=== PATIENT | male | born 1950 | race African-American/Black ===

== ENCOUNTER 2016-11-19 15:30 | Observation (INO) | payer MEDICARE ==
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
[2016-11-19] MEDS ORDERED: KCL 40MEQ/NS 1,000 ML IVS PRN (17:06)
[2016-11-19] MEDS ORDERED: DEXTROSE 50% 25 GM/50 ML SYG IV ONE (17:09)
[2016-11-19] MEDS ORDERED: POTASSIUM CHLORIDE 20 MEQ TAB PO ONE (17:10)
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
[2016-11-19] MEDS ORDERED: ACETAMINOPHEN 325 MG TAB PO PRN (21:03)
[2016-11-19] MEDS ORDERED: DEXTROSE 50% 25 GM/50 ML SYG IV PRN (21:03)
[2016-11-19] MEDS ORDERED: SODIUM CHLORIDE 0.9% (FLUSH) 10 ML SYG IV PRN (21:03)
[2016-11-19] MEDS ORDERED: GLUCAGON INJ 1 MG VIAL SUBCU PRN (21:03)
[2016-11-19] MEDS ORDERED: IV SET AND CAP CHANGE INJ INJ SCH (21:30)
[2016-11-19] MEDS ORDERED: cloNIDine HCL 0.1 MG TAB PO ONE (22:17)
[2016-11-19] MEDS: INDOMETHACIN CAP 25 MG CAP PO SCH (22:41)
[2016-11-19] MEDS: KCL 20MEQ/0.45% NS 1,000 ML IVS PRN (22:42)
--- NOTE | 2016-11-19 22:44 | PCM.CORE ---
Physician DVT/VTE - Nurse DVT Assessment & Total Each Risk Factor Represents 2 Points: Age 60-74 Each Risk Factor is 1 Point: Obesity (BMI >25) DVT Assessment Score: 3 - 3-4 High Risk Treatments: Early Ambulation *, Sequential Compression Device Pharmacological: Enoxaparin 40 mg SQ Daily
[2016-11-20] MEDS: INSULIN LISPRO 100 UNITS/ML PEN SUBCU SCH ×4 (07:37→21:05)
[2016-11-20] MEDS ORDERED: INDOMETHACIN CAP 25 MG CAP ONE (08:03)
[2016-11-20] MEDS: INDOMETHACIN CAP 25 MG CAP PO SCH ×3 (08:04→16:52)
[2016-11-20] MEDS ORDERED: ENOXAPARIN SODIUM 40 MG/0.4 ML SYG SUBCU ONE (08:44)
[2016-11-20] MEDS: ENOXAPARIN SODIUM 40 MG/0.4 ML SYG SUBCU SCH (08:45)
--- NOTE | 2016-11-20 10:19 | RAD ---
NAME: JOE SZYMANSKIPROCEDURE: XR HAND 1-2 VIEWSORDER DATE: 11/19/2016 10:13 PM CSTACCESSION NUMBER: [id number] CLINICAL HISTORY: SWOLLEN lEFT HAND; hX OF GOUT INDICATION: Same as above COMPARISON: None . TECHNIQUE: 2.0 Views of the left hand were done. FINDINGS: There is no evidence of acute fractures or dislocation involving the bones of the left wrist and hand. Note is made of tiny focal erosive changes at the bases of the proximal phalanges of the second and the fourth digit, suggestive of underlying mild degenerative change. There is no visualization of chondrocalcinosis in the region of the wrist joint. The wrist joint arches are well-maintained. There is no evidence of ulnar variance. The joint spaces of the hand and the wrist are relatively well-maintained. The bone mineralization is normal for patient's age and sex. The soft tissues are radiographically unremarkable. There is no visualization of any radiopaque foreign bodies in the evaluated soft tissues. IMPRESSION: Note is made of tiny focal erosive changes at the bases of the proximal phalanges of the second and the fourth digit, suggestive of underlying mild degenerative change. Place of interpretation: Teleradiology. Electronically signed by: Eder Fitzpatrick MD 11/20/2016 10:18 AM ORE SMELTER
[2016-11-20] MEDS: KCL 20MEQ/0.45% NS 1,000 ML IVS PRN (11:09)
[2016-11-20] MEDS ORDERED: cloNIDine HCL 0.1 MG TAB PO ONE (12:59)
[2016-11-20] MEDS: NEBIVOLOL 2.5 MG TAB PO SCH (13:23)
[2016-11-20] MEDS: amLODIPine BESYLATE 5 MG TAB PO SCH (13:23)
[2016-11-20] MEDS: POTASSIUM CHLORIDE 20 MEQ TAB PO SCH (13:23)
[2016-11-20] MEDS: SODIUM CHLORIDE 0.9% (FLUSH) 10 ML SYG IV SCH ×2 (13:24→20:42)
[2016-11-20] MEDS: PANTOPRAZOLE SODIUM IV 40 MG VIAL IV SCH (13:27)
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
[2016-11-21] MEDS: PANTOPRAZOLE SODIUM IV 40 MG VIAL IV SCH (06:32)
[2016-11-21] MEDS: INSULIN LISPRO 100 UNITS/ML PEN SUBCU SCH ×2 (07:03→11:40)
[2016-11-21] MEDS: POTASSIUM CHLORIDE 20 MEQ TAB PO SCH (07:10)
[2016-11-21] MEDS: INDOMETHACIN CAP 25 MG CAP PO SCH ×2 (07:10→11:41)
[2016-11-21] MEDS: NEBIVOLOL 2.5 MG TAB PO SCH (08:31)
[2016-11-21] MEDS: ENOXAPARIN SODIUM 40 MG/0.4 ML SYG SUBCU SCH (08:31)
[2016-11-21] MEDS: amLODIPine BESYLATE 5 MG TAB PO SCH (08:32)
[2016-11-21] MEDS: SODIUM CHLORIDE 0.9% (FLUSH) 10 ML SYG IV SCH (08:33)
[2016-11-21] MEDS ORDERED: LISINOPRIL 10 MG TAB PO SCH (10:00)
[2016-11-21 10:28] VITALS: BP 157/86; TEMP 98.5; O2SAT 99
[2016-11-21] MEDS ORDERED: metFORMIN HCL 500 MG TAB PO SCH (17:00)
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
--- NOTE | 2016-12-19 23:46 | RAD ---
NAME: JOE SZYMANSKIPROCEDURE: XR HAND 1-2 VIEWSORDER DATE: 11/19/2016 10:13 PM CSTACCESSION NUMBER: [id number] CLINICAL HISTORY: SWOLLEN lEFT HAND; hX OF GOUT INDICATION: Same as above COMPARISON: None . TECHNIQUE: 2.0 Views of the left hand were done. FINDINGS: There is no evidence of acute fractures or dislocation involving the bones of the left wrist and hand. Note is made of tiny focal erosive changes at the bases of the proximal phalanges of the second and the fourth digit, suggestive of underlying mild degenerative change. There is no visualization of chondrocalcinosis in the region of the wrist joint. The wrist joint arches are well-maintained. There is no evidence of ulnar variance. The joint spaces of the hand and the wrist are relatively well-maintained. The bone mineralization is normal for patient's age and sex. The soft tissues are radiographically unremarkable. There is no visualization of any radiopaque foreign bodies in the evaluated soft tissues. IMPRESSION: Note is made of tiny focal erosive changes at the bases of the proximal phalanges of the second and the fourth digit, suggestive of underlying mild degenerative change. Place of interpretation: Teleradiology. Electronically signed by: Eder Fitzpatrick MD 11/20/2016 10:18 AM WALL COVERING CONTRACTOR
--- NOTE | 2016-12-20 04:31 | RAD ---
NAME: JOE SZYMANSKIPROCEDURE: XR HAND 1-2 VIEWSORDER DATE: 11/19/2016 10:13 PM CSTACCESSION NUMBER: [id number] CLINICAL HISTORY: SWOLLEN lEFT HAND; hX OF GOUT INDICATION: Same as above COMPARISON: None . TECHNIQUE: 2.0 Views of the left hand were done. FINDINGS: There is no evidence of acute fractures or dislocation involving the bones of the left wrist and hand. Note is made of tiny focal erosive changes at the bases of the proximal phalanges of the second and the fourth digit, suggestive of underlying mild degenerative change. There is no visualization of chondrocalcinosis in the region of the wrist joint. The wrist joint arches are well-maintained. There is no evidence of ulnar variance. The joint spaces of the hand and the wrist are relatively well-maintained. The bone mineralization is normal for patient's age and sex. The soft tissues are radiographically unremarkable. There is no visualization of any radiopaque foreign bodies in the evaluated soft tissues. IMPRESSION: Note is made of tiny focal erosive changes at the bases of the proximal phalanges of the second and the fourth digit, suggestive of underlying mild degenerative change. Place of interpretation: Teleradiology. Electronically signed by: Eder Fitzpatrick MD 11/20/2016 10:18 AM DENTAL CERAMIST ASSISTANT
--- NOTE | 2016-12-20 05:40 | RAD ---
NAME: JOE SZYMANSKIPROCEDURE: XR HAND 1-2 VIEWSORDER DATE: 11/19/2016 10:13 PM CSTACCESSION NUMBER: [id number] CLINICAL HISTORY: SWOLLEN lEFT HAND; hX OF GOUT INDICATION: Same as above COMPARISON: None . TECHNIQUE: 2.0 Views of the left hand were done. FINDINGS: There is no evidence of acute fractures or dislocation involving the bones of the left wrist and hand. Note is made of tiny focal erosive changes at the bases of the proximal phalanges of the second and the fourth digit, suggestive of underlying mild degenerative change. There is no visualization of chondrocalcinosis in the region of the wrist joint. The wrist joint arches are well-maintained. There is no evidence of ulnar variance. The joint spaces of the hand and the wrist are relatively well-maintained. The bone mineralization is normal for patient's age and sex. The soft tissues are radiographically unremarkable. There is no visualization of any radiopaque foreign bodies in the evaluated soft tissues. IMPRESSION: Note is made of tiny focal erosive changes at the bases of the proximal phalanges of the second and the fourth digit, suggestive of underlying mild degenerative change. Place of interpretation: Teleradiology. Electronically signed by: Eder Fitzpatrick MD 11/20/2016 10:18 AM BLOCK CUTTER
== END 2016-11-21 11:40 | disposition home or self-care (01) ==
LOC: ER 15:30 → INTOOBSV 20:39 → MS 20:39
PROVIDERS: ADMIT Nurse Practitioner Family; ATTEND Nurse Practitioner Family
DX: E11.649 Type 2 diabetes mellitus with hypoglycemia without coma (principal); E11.65 Type 2 diabetes mellitus with hyperglycemia; E87.6 Hypokalemia; M10.9 Gout, unspecified; T46.5X6A Underdosing of other antihypertensive drugs, initial encounter; M19.90 Unspecified osteoarthritis, unspecified site; E11.22 Type 2 diabetes mellitus with diabetic chronic kidney disease; I12.9 Hypertensive chronic kidney disease with stage 1 through stage 4 chronic kidney disease, or unspecified chronic kidney disease; N18.9 Chronic kidney disease, unspecified; D50.9 Iron deficiency anemia, unspecified; E78.2 Mixed hyperlipidemia; E66.9 Obesity, unspecified; I45.10 Unspecified right bundle-branch block; Z79.4 Long term (current) use of insulin; Z79.899 Other long term (current) drug therapy; Z96.651 Presence of right artificial knee joint; Z91.120 Patient's intentional underdosing of medication regimen due to financial hardship; Y92.009 Unspecified place in unspecified non-institutional (private) residence as the place of occurrence of the external cause; Z82.3 Family history of stroke; Z80.0 Family history of malignant neoplasm of digestive organs
CPT/HCPCS: 36415 ×5; 36416; 70450; 73120; 77067; 80048 ×2; 80053 ×2; 81001; 82947; 82948 ×10; 83036; 83735; 85025 ×3; 93005; 94760 ×3; G0378; G0479; J1650 ×2; J3480 ×3; J7799

== ENCOUNTER → 2017-02-01 | Outpatient (CLI) | payer MEDICARE | END | disposition home or self-care (01) | LOC: YCFC.O 09:33 | PROVIDERS: ATTEND Nurse Practitioner Family | DX: M10.09 Idiopathic gout, multiple sites (principal); E11.22 Type 2 diabetes mellitus with diabetic chronic kidney disease; E78.2 Mixed hyperlipidemia; I12.9 Hypertensive chronic kidney disease with stage 1 through stage 4 chronic kidney disease, or unspecified chronic kidney disease; N18.3 Chronic kidney disease, stage 3 (moderate) ==

== ENCOUNTER → 2017-05-03 | Outpatient (CLI) | payer MEDICARE | END | disposition home or self-care (01) | LOC: YCFC.O 12:51 | PROVIDERS: ATTEND Nurse Practitioner Family | DX: E11.9 Type 2 diabetes mellitus without complications (principal) ==